=== PATIENT | male | born 1990 | race Asian ===

== ENCOUNTER 2022-01-14 00:22 | Emergency (ER) | payer OTHER ==
[~2022-01-14] VITALS: Ht 172.7 cm; Wt 81.6 kg
[2022-01-14 00:36] VITALS: BP 106/67; TEMP 98.7
== END 2022-01-14 07:10 | disposition home or self-care (01) ==
LOC: ED 00:22
DX: S90.121A Contusion of right lesser toe(s) without damage to nail, initial encounter (principal); W22.8XXA Striking against or struck by other objects, initial encounter; Y92.098 Other place in other non-institutional residence as the place of occurrence of the external cause
CPT/HCPCS: 96372; 99283; J1885

== ENCOUNTER 2022-11-21 09:33 | Emergency (ER) | payer OTHER ==
[~2022-11-21] VITALS: Ht 170.2 cm; Wt 93.0 kg
[2022-11-21 10:51] VITALS: BP 135/75; TEMP 98.30
== END 2022-11-21 10:51 | disposition home or self-care (01) ==
LOC: ED 09:33
DX: N39.0 Urinary tract infection, site not specified (principal); F12.90 Cannabis use, unspecified, uncomplicated
CPT/HCPCS: 81002; 87086; 87088; 96372; 99283; J0696